=== PATIENT | female | born 1980 | race Caucasian/White ===

== ENCOUNTER 2022-10-13 09:46 | Emergency (ER) | payer BC ==
[2022-10-13] MEDS ORDERED: Acetaminophen 500 MG TAB ONE (10:50)
== END 2022-10-13 11:16 | disposition home or self-care (01) ==
LOC: CSHERS 09:46
DX: M62.830 Muscle spasm of back (principal); R03.0 Elevated blood-pressure reading, without diagnosis of hypertension; E78.5 Hyperlipidemia, unspecified; K21.9 Gastro-esophageal reflux disease without esophagitis
CPT/HCPCS: 71045; 84484; 93005

== ENCOUNTER 2023-08-19 15:05 | Outpatient (CLI) | payer BC | END 2023-08-19 15:06 | disposition home or self-care (01) | LOC: CSHULT 15:05 | PROVIDERS: ATTEND Nurse Practitioner Family | DX: R22.32 Localized swelling, mass and lump, left upper limb (principal) | CPT/HCPCS: 76999 ==

== ENCOUNTER 2024-07-30 08:46 | Outpatient (CLI) | payer BC | END 2024-07-30 08:47 | disposition home or self-care (01) | LOC: CSHSLEEP 08:46 | PROVIDERS: ATTEND Family Medicine | DX: G47.33 Obstructive sleep apnea (adult) (pediatric) (principal); R53.83 Other fatigue; R09.89 Other specified symptoms and signs involving the circulatory and respiratory systems; F41.9 Anxiety disorder, unspecified; E66.9 Obesity, unspecified; Z68.41 Body mass index [BMI] 40.0-44.9, adult; R06.83 Snoring; G47.00 Insomnia, unspecified | CPT/HCPCS: 95811 ==